=== PATIENT | female | born 1995 | race Caucasian/White ===

== ENCOUNTER 2019-06-09 12:16 | Emergency (ER) | payer SELFPAY ==
[~2019-06-09] VITALS: Ht 162.6 cm; Wt 72.6 kg
[2019-06-09 12:27] VITALS: BP 130/77
[2019-06-09] MEDS ORDERED: ONDANSETRON 4 MG ODT PO ONE (14:55)
[2019-06-09] MEDS ORDERED: HYDROcodone/APAP 5/325 MG 1 TAB TAB PO ONE (14:55)
[2019-06-09 15:55] VITALS: BP 125/79
== END 2019-06-09 15:55 | disposition home or self-care (01) ==
LOC: MED 12:16
DX: S16.1XXA Strain of muscle, fascia and tendon at neck level, initial encounter (principal); S39.012A Strain of muscle, fascia and tendon of lower back, initial encounter; S09.90XA Unspecified injury of head, initial encounter; Y08.89XA Assault by other specified means, initial encounter; Y93.89 Activity, other specified; Y92.89 Other specified places as the place of occurrence of the external cause; Y99.8 Other external cause status
CPT/HCPCS: 70450; 72125; 81025; 99284; Q0162